=== PATIENT | male | born 1970 | race Caucasian/White ===

== ENCOUNTER 2018-02-14 12:13 | Emergency (ER) | payer OTHER ==
[~2018-02-14] VITALS: Ht 182.9 cm; Wt 92.7 kg
[2018-02-14] MEDS ORDERED: PERCT PO (12:23)
[2018-02-14] MEDS ORDERED: ATEN25TA PO (12:23)
[2018-02-14] MEDS ORDERED: IBUPROFEN 800 MG TABLET PO ONE (13:15)
[2018-02-14 14:07] VITALS: BP 129/86
== END 2018-02-14 14:16 | disposition home or self-care (01) ==
LOC: EMS 12:15
DX: L08.9 Local infection of the skin and subcutaneous tissue, unspecified (principal); I10 Essential (primary) hypertension; Z88.2 Allergy status to sulfonamides

== ENCOUNTER 2018-08-05 07:36 | Inpatient (IN) | payer MEDICAID, OTHER ==
[~2018-08-05] VITALS: Ht 182.9 cm; Wt 87.6 kg
[~2018-08-05 07:36] MED LIST: ATEN25TA PO; PERCT PO
[2018-08-05 10:08] LABS: AMPHET/METH SCREEN,URINE POSITIVE (NEGATIVE); BARBITURATE SCREEN, URINE NEGATIVE (NEGATIVE); BENZODIAZEPINES SCREEN,URINE NEGATIVE (NEGATIVE); CANNABINOID SCREEN,URINE POSITIVE (NEGATIVE); COCAINE SCREEN,URINE NEGATIVE (NEGATIVE); METHADONE SCREEN, URINE NEGATIVE (NEGATIVE); OPIATE SCREEN,URINE NEGATIVE (NEGATIVE)
[2018-08-05 10:09] LABS: PHENCYCLIDINE SCREEN,URINE NEGATIVE (NEGATIVE)
[2018-08-05 10:14] LABS: BASOPHILS % (AUTO) 0.6 % (0.0-2.0); EOSINOPHILS % (AUTO) 5.8 % (1.0-6.0); HEMATOCRIT 40.3 % (41-53); HEMOGLOBIN 13.4 g/dL (13.5-17.5); LYMPHOCYTES # (AUTO) 1.4 K/uL (1.0-4.8); LYMPHOCYTES % (AUTO) 22.7 % (22.0-44.0); MEAN CORPUSCULAR HEMOGLOBIN 28.1 pg (26.0-34.0); MEAN CORPUSCULAR HGB CONC 33.1 G/dL (31.0-37.0); MEAN CORPUSCULAR VOLUME 85 fL (80-100); MONOCYTES # (AUTO) 0.3 K/uL (0.1-1.0); MONOCYTES % (AUTO) 5.9 % (2.0-9.0); NEUTROPHILS # (AUTO) 3.9 K/uL (1.8-7.7); PLATELET COUNT (AUTO) 246 K/uL (150-450); RED BLOOD CELL COUNT(AUTO) 4.76 MIL/uL (4.50-5.90); RED CELL DISTRIBUTION WIDTH 13.2 % (11.5-14.5)
[2018-08-05 10:24] LABS: ANION GAP 7 mmol/L (8-16); CALCIUM, TOTAL 8.9 mg/dL (8.8-10.5); CARBON DIOXIDE 28 mmol/L (22-29); CHLORIDE 104 mmol/L (98-107); CREATININE 1.34 mg/dL (0.60-1.30); GLOMERULAR FILTR. RATE CALC 57 mL/min (>60); GLUCOSE,RANDOM 91 mg/dL (70-110); POTASSIUM 4.4 mmol/L (3.5-5.1); SODIUM SERUM 139 mmol/L (136-145); UREA NITROGEN, BLOOD 15 mg/dL (7-18)
[2018-08-05 10:29] LABS: ALANINE AMINOTRANSFERASE 32 U/L (12-78); ALBUMIN 3.6 g/dL (3.4-5.0); ALKALINE PHOSPHATASE 53 U/L (46-116); ASPARTATE AMINOTRANSFERASE 23 U/L (15-37); BILIRUBIN,TOTAL 0.3 mg/dL (0.1-1.0); TOTAL PROTEIN, SERUM 6.7 g/dL (6.4-8.2)
[2018-08-05] MEDS ORDERED: ACETAMINOPHEN 325 MG TABLET PO PRN (15:00)
[2018-08-05] MEDS ORDERED: QUEtiapine FUMARATE 100 MG TABLET PO PRN (15:00)
[2018-08-05] MEDS ORDERED: MAG HYDROX/AL HYDROX/SIMETH ES 30 ML SUSPENSION UDCUP PO PRN (15:00)
[2018-08-05] MEDS ORDERED: GuaiFENesin/D-METHORPHAN [SUGAR-FREE] 200-20MG/10 ML SYRUP UDCUP PO PRN (15:00)
[2018-08-05] MEDS ORDERED: TUBERCULIN, PURIFIED PROTEIN DERIVATIVE 5 TU/0.1 ML SYRINGE ID ONE (15:00)
[2018-08-05] MEDS ORDERED: LOPERAMIDE HCL 2 MG CAPSULE PO PRN (15:00)
[2018-08-05] MEDS ORDERED: HydrOXYzine PAMOATE 50 MG CAPSULE PO PRN (15:00)
[2018-08-05] MEDS ORDERED: LORazepam 2 MG TABLET PO PRN (15:00)
[2018-08-05] MEDS ORDERED: MAGNESIUM HYDROXIDE SUSPENSION 30 ML UDCUP PO PRN (15:00)
[2018-08-05] MEDS ORDERED: PROMETHAZINE HCL 25 MG TABLET PO PRN (15:00)
[2018-08-05 16:26] VITALS: BP 101/75
[2018-08-05] MEDS: THIAMINE HCL 100 MG TABLET PO SCH (17:20)
[2018-08-05] MEDS ORDERED: MIRTAZAPINE 15 MG TABLET PO SCH (21:00)
[2018-08-06 01:09] VITALS: BP 130/80
[2018-08-06 08:37] LABS: CHOL/HDL RATIO 5.1 (4.2-7.3); FREE T4 (FREE THYROXINE) 0.84 ng/dL (0.76-1.46); THYROID STIMULATING HORMONE 1.46 uIU/mL (0.36-3.74)
[2018-08-06] MEDS: FOLIC ACID 1 MG TABLET PO SCH (08:53)
[2018-08-06] MEDS: THIAMINE HCL 100 MG TABLET PO SCH ×2 (08:53→16:52)
[2018-08-06] MEDS: MULTIVITAMINS WITH MINERALS, THERAPEUTIC TABLET PO SCH (08:53)
[2018-08-06] MEDS ORDERED: NALTREXONE HCL 50 MG TABLET PO SCH (09:00)
[2018-08-06 09:22] VITALS: BP 147/87
[2018-08-06 16:33] VITALS: BP 101/90
[2018-08-06] MEDS: GABAPENTIN 400 MG CAPSULE PO SCH (20:48)
[2018-08-06] MEDS: ZOLPIDEM TARTRATE 10 MG TABLET PO PRN (21:30)
[2018-08-06] MEDS ORDERED: CloNIDine HCL 0.1 MG TABLET PO PRN (23:00)
[2018-08-07 08:26] VITALS: BP 130/95
[2018-08-07] MEDS ORDERED: DULoxetine HCL 20 MG CAPSULE PO SCH (09:00)
[2018-08-07] MEDS ORDERED: HYDROCODONE/ACETAMINOPHEN 5-325 MG TABLET PO PRN (09:15)
[2018-08-07] MEDS: GABAPENTIN 400 MG CAPSULE PO SCH ×3 (09:38→17:47)
[2018-08-07] MEDS: MULTIVITAMINS WITH MINERALS, THERAPEUTIC TABLET PO SCH (09:38)
[2018-08-07] MEDS: FOLIC ACID 1 MG TABLET PO SCH (09:38)
[2018-08-07] MEDS: THIAMINE HCL 100 MG TABLET PO SCH ×2 (09:38→17:47)
[2018-08-07] MEDS: ACAMPROSATE CALCIUM 333 MG DR TABLET PO SCH ×3 (09:38→17:47)
[2018-08-07] MEDS ORDERED: ACAM333T7 PO (13:30)
[2018-08-07] MEDS ORDERED: DULO20CA30 PO (13:30)
[2018-08-07] MEDS ORDERED: GABA-533 PO (13:30)
[2018-08-07 16:33] VITALS: BP 124/84
[2018-08-07] MEDS: ZOLPIDEM TARTRATE 10 MG TABLET PO PRN (20:51)
[2018-08-08] MEDS ORDERED: DULO30CA2 PO (08:01)
[2018-08-08] MEDS ORDERED: GABA-531 PO (08:01)
[2018-08-08] MEDS ORDERED: ACAM333T7 PO (08:01)
[2018-08-08 08:14] VITALS: BP 151/96
[2018-08-08] MEDS ORDERED: DULoxetine HCL 20 MG CAPSULE PO SCH (09:00)
[2018-08-08] MEDS: GABAPENTIN 400 MG CAPSULE PO SCH ×2 (09:24→12:47)
[2018-08-08] MEDS: FOLIC ACID 1 MG TABLET PO SCH (09:24)
[2018-08-08] MEDS: THIAMINE HCL 100 MG TABLET PO SCH (09:24)
[2018-08-08] MEDS: ACAMPROSATE CALCIUM 333 MG DR TABLET PO SCH ×2 (09:24→12:47)
[2018-08-08] MEDS: MULTIVITAMINS WITH MINERALS, THERAPEUTIC TABLET PO SCH (09:24)
[2018-08-08 12:35] VITALS: BP 123/96
[2018-08-08 16:21] VITALS: BP 138/91
== END 2018-08-08 15:45 | disposition home or self-care (01) | DRG 751 ==
LOC: EMS 07:36 → B2S 14:26
PROVIDERS: ADMIT Psychiatry & Neurology Psychiatry; ATTEND Psychiatry & Neurology Psychiatry
DX: F33.2 Major depressive disorder, recurrent severe without psychotic features (principal); C78.00 Secondary malignant neoplasm of unspecified lung; R45.851 Suicidal ideations; F11.20 Opioid dependence, uncomplicated; C62.90 Malignant neoplasm of unspecified testis, unspecified whether descended or undescended; D64.9 Anemia, unspecified; F12.90 Cannabis use, unspecified, uncomplicated; F15.90 Other stimulant use, unspecified, uncomplicated; I12.9 Hypertensive chronic kidney disease with stage 1 through stage 4 chronic kidney disease, or unspecified chronic kidney disease; Z96.641 Presence of right artificial hip joint; N18.1 Chronic kidney disease, stage 1; Z80.0 Family history of malignant neoplasm of digestive organs; Z91.19 Patient's noncompliance with other medical treatment and regimen; Z79.52 Long term (current) use of systemic steroids; Z81.8 Family history of other mental and behavioral disorders; Z82.49 Family history of ischemic heart disease and other diseases of the circulatory system; Z85.47 Personal history of malignant neoplasm of testis; Z88.2 Allergy status to sulfonamides
CPT/HCPCS: 84439; 84443; G0480

== ENCOUNTER 2018-09-06 17:09 | Inpatient (IN) | payer MEDICAID, OTHER ==
[~2018-09-06] VITALS: Ht 182.9 cm; Wt 88.0 kg
[~2018-09-06 17:09] MED LIST changes: +ACAM333T7 PO; -ATEN25TA PO; +DULO20CA30 PO; +DULO30CA2 PO; +GABA-531 PO; +GABA-533 PO; -PERCT PO
[2018-09-06] MEDS ORDERED: PERCT10 PO (17:48)
[2018-09-06] MEDS ORDERED: PERTUSS(ACELL),DIPH,TET VAC/PF 0.5 ML VIAL IM ONE (18:15)
[2018-09-06 18:26] LABS: BASOPHILS % (AUTO) 0.8 % (0.0-2.0); HEMATOCRIT 37.5 % (41-53); HEMOGLOBIN 12.5 g/dL (13.5-17.5); LYMPHOCYTES # (AUTO) 1.5 K/uL (1.0-4.8); LYMPHOCYTES % (AUTO) 19.5 % (22.0-44.0); MEAN CORPUSCULAR HEMOGLOBIN 27.9 pg (26.0-34.0); MEAN CORPUSCULAR HGB CONC 33.3 G/dL (31.0-37.0); MEAN CORPUSCULAR VOLUME 84 fL (80-100); MONOCYTES # (AUTO) 0.4 K/uL (0.1-1.0); MONOCYTES % (AUTO) 5.6 % (2.0-9.0); NEUTROPHILS # (AUTO) 5.3 K/uL (1.8-7.7); NEUTROPHILS % (AUTO) 68.1 % (40.0-70.0); PLATELET COUNT (AUTO) 235 K/uL (150-450); RED BLOOD CELL COUNT(AUTO) 4.46 MIL/uL (4.50-5.90); RED CELL DISTRIBUTION WIDTH 13.5 % (11.5-14.5)
[2018-09-06 18:36] LABS: ANION GAP 8 mmol/L (8-16); CALCIUM, TOTAL 8.5 mg/dL (8.8-10.5); CARBON DIOXIDE 28 mmol/L (22-29); CHLORIDE 106 mmol/L (98-107); CREATININE 0.94 mg/dL (0.60-1.30); GLOMERULAR FILTR. RATE CALC > 60 mL/min (>60); GLUCOSE,RANDOM 99 mg/dL (70-110); POTASSIUM 4.2 mmol/L (3.5-5.1); SODIUM SERUM 142 mmol/L (136-145); UREA NITROGEN, BLOOD 15 mg/dL (7-18)
[2018-09-06 18:42] LABS: ALANINE AMINOTRANSFERASE 30 U/L (12-78); ALBUMIN 3.6 g/dL (3.4-5.0); ALKALINE PHOSPHATASE 57 U/L (46-116); ASPARTATE AMINOTRANSFERASE 20 U/L (15-37); BILIRUBIN,TOTAL 0.2 mg/dL (0.1-1.0); TOTAL PROTEIN, SERUM 6.9 g/dL (6.4-8.2)
[2018-09-06 19:01] LABS: AMPHET/METH SCREEN,URINE POSITIVE (NEGATIVE); BARBITURATE SCREEN, URINE NEGATIVE (NEGATIVE); BENZODIAZEPINES SCREEN,URINE NEGATIVE (NEGATIVE); CANNABINOID SCREEN,URINE POSITIVE (NEGATIVE); COCAINE SCREEN,URINE NEGATIVE (NEGATIVE); METHADONE SCREEN, URINE NEGATIVE (NEGATIVE); OPIATE SCREEN,URINE NEGATIVE (NEGATIVE); PHENCYCLIDINE SCREEN,URINE NEGATIVE (NEGATIVE)
[2018-09-06] MEDS ORDERED: QUEtiapine FUMARATE 100 MG TABLET PO PRN (20:45)
[2018-09-06] MEDS ORDERED: ZOLPIDEM TARTRATE 10 MG TABLET PO PRN (20:45)
[2018-09-06] MEDS ORDERED: LORazepam 2 MG TABLET PO PRN (20:45)
[2018-09-07] MEDS: LORazepam 2 MG TABLET PO PRN (03:04)
[2018-09-07] MEDS: QUEtiapine FUMARATE 100 MG TABLET PO PRN (03:04)
[2018-09-07] MEDS: GABAPENTIN 300 MG CAPSULE PO SCH ×2 (16:03→21:00)
[2018-09-08] MEDS: GABAPENTIN 300 MG CAPSULE PO SCH ×2 (09:00→17:00)
[2018-09-08] MEDS: DULoxetine HCL 60 MG CAPSULE PO SCH (09:00)
[2018-09-08] MEDS: BuPROPion HCL XL 150 MG ER TABLET PO SCH (09:00)
[2018-09-08] MEDS: LORazepam 2 MG TABLET PO PRN ×2 (12:27→18:07)
[2018-09-08 17:04] VITALS: BP 135/96
[2018-09-08] MEDS ORDERED: PNEUMOCOCCAL VACCINE POLYVALENT 0.5 ML VIAL [PPSV23] IM ONE (20:45)
[2018-09-08] MEDS ORDERED: IBUPROFEN 600 MG TABLET PO PRN (21:00)
[2018-09-08] MEDS ORDERED: ACETAMINOPHEN 325 MG TABLET PO PRN (21:00)
[2018-09-09 07:13] VITALS: BP 122/89
[2018-09-09] MEDS: GABAPENTIN 300 MG CAPSULE PO SCH ×2 (08:17→12:02)
[2018-09-09] MEDS: DULoxetine HCL 60 MG CAPSULE PO SCH (08:17)
[2018-09-09] MEDS: BuPROPion HCL XL 150 MG ER TABLET PO SCH (08:18)
[2018-09-09] MEDS: BACITRACIN 28.4 GM OINTMENT TP SCH (08:18)
[2018-09-09 08:36] VITALS: BP 120/75
[2018-09-09] MEDS ORDERED: PROMETHAZINE HCL 25 MG TABLET PO PRN (13:00)
[2018-09-09] MEDS ORDERED: GuaiFENesin/D-METHORPHAN [SUGAR-FREE] 200-20MG/10 ML SYRUP UDCUP PO PRN (13:00)
[2018-09-09] MEDS ORDERED: ACETAMINOPHEN 325 MG TABLET PO PRN (13:00)
[2018-09-09] MEDS ORDERED: MAG HYDROX/AL HYDROX/SIMETH ES 30 ML SUSPENSION UDCUP PO PRN (13:00)
[2018-09-09] MEDS ORDERED: LOPERAMIDE HCL 2 MG CAPSULE PO PRN (13:00)
[2018-09-09] MEDS ORDERED: MAGNESIUM HYDROXIDE SUSPENSION 30 ML UDCUP PO PRN (13:00)
[2018-09-09] MEDS ORDERED: HydrOXYzine PAMOATE 50 MG CAPSULE PO PRN (13:00)
[2018-09-09] MEDS: ACAMPROSATE CALCIUM 333 MG DR TABLET PO SCH ×2 (13:00→17:00)
[2018-09-09 13:35] VITALS: BP 118/62
[2018-09-09] MEDS: HYDROCODONE/ACETAMINOPHEN 5-325 MG TABLET PO PRN ×2 (13:38→23:27)
[2018-09-09 14:38] VITALS: BP 118/64
[2018-09-09 16:00] VITALS: BP 131/87
[2018-09-09] MEDS: PREGABALIN 25 MG CAPSULE PO SCH (17:00)
[2018-09-09] MEDS: LORazepam 2 MG TABLET PO PRN (17:20)
[2018-09-09] MEDS: THIAMINE HCL 100 MG TABLET PO SCH (17:20)
[2018-09-09] MEDS ORDERED: ACAM333T7 PO (17:22)
[2018-09-09] MEDS ORDERED: MIRTAZAPINE 15 MG TABLET PO SCH (21:00)
[2018-09-10] VITALS (7 sets, daily range): BP systolic 118–145; BP diastolic 62–80
[2018-09-10] MEDS: HYDROCODONE/ACETAMINOPHEN 5-325 MG TABLET PO PRN ×3 (07:40→20:32)
[2018-09-10] MEDS: THIAMINE HCL 100 MG TABLET PO SCH ×2 (08:24→16:07)
[2018-09-10] MEDS: FOLIC ACID 1 MG TABLET PO SCH (08:24)
[2018-09-10] MEDS: ACAMPROSATE CALCIUM 333 MG DR TABLET PO SCH ×3 (08:24→16:07)
[2018-09-10] MEDS: MULTIVITAMINS WITH MINERALS, THERAPEUTIC TABLET PO SCH (08:24)
[2018-09-10] MEDS: PREGABALIN 25 MG CAPSULE PO SCH ×2 (08:30→13:16)
[2018-09-10] MEDS: BACITRACIN 28.4 GM OINTMENT TP SCH (08:30)
[2018-09-10] MEDS: LORazepam 0.5 MG TABLET PO PRN ×2 (13:17→20:32)
[2018-09-10] MEDS: PREGABALIN 50 MG CAPSULE PO SCH (16:07)
[2018-09-10] MEDS: MIRTAZAPINE 30 MG TABLET PO SCH (20:32)
[2018-09-10] MEDS: ZOLPIDEM TARTRATE 10 MG TABLET PO PRN (20:32)
[2018-09-11 01:07] VITALS: BP 107/59
[2018-09-11 07:30] VITALS: BP 112/62
[2018-09-11] MEDS: HYDROCODONE/ACETAMINOPHEN 5-325 MG TABLET PO PRN ×3 (07:32→20:58)
[2018-09-11] MEDS: PREGABALIN 50 MG CAPSULE PO SCH ×3 (08:02→16:37)
[2018-09-11] MEDS: THIAMINE HCL 100 MG TABLET PO SCH ×2 (08:02→16:37)
[2018-09-11] MEDS: FOLIC ACID 1 MG TABLET PO SCH (08:02)
[2018-09-11] MEDS: ACAMPROSATE CALCIUM 333 MG DR TABLET PO SCH ×3 (08:02→16:37)
[2018-09-11] MEDS: LORazepam 0.5 MG TABLET PO PRN ×3 (08:02→20:58)
[2018-09-11] MEDS: BACITRACIN 28.4 GM OINTMENT TP SCH (08:03)
[2018-09-11] MEDS: MULTIVITAMINS WITH MINERALS, THERAPEUTIC TABLET PO SCH (08:03)
[2018-09-11 08:17] VITALS: BP 115/76
[2018-09-11 13:30] VITALS: BP 118/64
[2018-09-11 14:33] VITALS: BP 116/62
[2018-09-11 16:06] VITALS: BP 139/71
[2018-09-11] MEDS ORDERED: PREGABALIN 75 MG CAPSULE PO SCH (17:00)
[2018-09-11] MEDS: MIRTAZAPINE 30 MG TABLET PO SCH (20:57)
[2018-09-11] MEDS: ZOLPIDEM TARTRATE 10 MG TABLET PO PRN (20:58)
[2018-09-12 08:14] VITALS: BP 120/74
[2018-09-12] MEDS: FOLIC ACID 1 MG TABLET PO SCH (08:22)
[2018-09-12] MEDS: ACAMPROSATE CALCIUM 333 MG DR TABLET PO SCH ×3 (08:22→16:13)
[2018-09-12] MEDS: MULTIVITAMINS WITH MINERALS, THERAPEUTIC TABLET PO SCH (08:22)
[2018-09-12] MEDS: THIAMINE HCL 100 MG TABLET PO SCH ×2 (08:22→16:13)
[2018-09-12] MEDS ORDERED: BACITRACIN 28.4 GM OINTMENT TP PRN (10:30)
[2018-09-12 10:32] VITALS: BP 138/94
[2018-09-12] MEDS: HYDROCODONE/ACETAMINOPHEN 5-325 MG TABLET PO PRN ×2 (10:32→20:08)
[2018-09-12 16:09] VITALS: BP 118/79
[2018-09-12] MEDS: PREGABALIN 75 MG CAPSULE PO SCH (16:13)
[2018-09-12] MEDS: AMOX TR/POT CLAV 875 MG/125 MG TABLET PO SCH (16:13)
[2018-09-12] MEDS: MIRTAZAPINE 30 MG TABLET PO SCH (20:08)
[2018-09-12] MEDS: LORazepam 0.5 MG TABLET PO PRN (20:09)
[2018-09-12] MEDS: ZOLPIDEM TARTRATE 10 MG TABLET PO PRN (20:09)
[2018-09-13 04:59] VITALS: BP 138/77
[2018-09-13 08:02] VITALS: BP 131/57
[2018-09-13] MEDS: PREGABALIN 75 MG CAPSULE PO SCH ×2 (08:43→12:33)
[2018-09-13] MEDS: AMOX TR/POT CLAV 875 MG/125 MG TABLET PO SCH ×2 (08:43→16:36)
[2018-09-13] MEDS: FOLIC ACID 1 MG TABLET PO SCH (08:43)
[2018-09-13] MEDS: ACAMPROSATE CALCIUM 333 MG DR TABLET PO SCH ×3 (08:43→16:36)
[2018-09-13] MEDS: MULTIVITAMINS WITH MINERALS, THERAPEUTIC TABLET PO SCH (08:43)
[2018-09-13] MEDS: THIAMINE HCL 100 MG TABLET PO SCH ×2 (08:45→16:36)
[2018-09-13 16:03] VITALS: BP 120/74
[2018-09-13] MEDS: PREGABALIN 50 MG CAPSULE PO SCH (16:36)
[2018-09-13] MEDS: LORazepam 0.5 MG TABLET PO PRN (16:36)
[2018-09-13] MEDS ORDERED: LORazepam 2 MG/ML VIAL ONE (20:11)
[2018-09-13] MEDS ORDERED: DiphenhydrAMINE HCL 50 MG/ML VIAL ONE (20:12)
[2018-09-13] MEDS ORDERED: DiphenhydrAMINE HCL 50 MG/ML VIAL IM ONE (20:30)
[2018-09-13] MEDS ORDERED: LORazepam 2 MG/ML VIAL IM ONE (20:30)
[2018-09-13] MEDS: MIRTAZAPINE 30 MG TABLET PO SCH (20:32)
[2018-09-14] MEDS: ACAMPROSATE CALCIUM 333 MG DR TABLET PO SCH ×3 (09:00→16:30)
[2018-09-14] MEDS: FOLIC ACID 1 MG TABLET PO SCH (09:00)
[2018-09-14] MEDS: AMOX TR/POT CLAV 875 MG/125 MG TABLET PO SCH ×2 (09:00→16:30)
[2018-09-14] MEDS: THIAMINE HCL 100 MG TABLET PO SCH ×2 (09:00→16:30)
[2018-09-14] MEDS: PREGABALIN 50 MG CAPSULE PO SCH ×3 (09:00→16:30)
[2018-09-14] MEDS: MULTIVITAMINS WITH IRON TABLET PO SCH (09:00)
[2018-09-14] MEDS: HYDROCODONE/ACETAMINOPHEN 5-325 MG TABLET PO PRN (20:18)
[2018-09-14] MEDS: MIRTAZAPINE 30 MG TABLET PO SCH (20:18)
[2018-09-14] MEDS: LORazepam 0.5 MG TABLET PO PRN (20:18)
[2018-09-14] MEDS: ZOLPIDEM TARTRATE 10 MG TABLET PO PRN (20:18)
[2018-09-15 05:26] VITALS: BP 112/70
[2018-09-15 08:00] VITALS: BP 113/68
[2018-09-15] MEDS: ACAMPROSATE CALCIUM 333 MG DR TABLET PO SCH ×3 (08:32→16:49)
[2018-09-15] MEDS: FOLIC ACID 1 MG TABLET PO SCH (08:32)
[2018-09-15] MEDS: AMOX TR/POT CLAV 875 MG/125 MG TABLET PO SCH ×2 (08:32→16:49)
[2018-09-15] MEDS: PREGABALIN 50 MG CAPSULE PO SCH ×3 (08:32→16:49)
[2018-09-15] MEDS: MULTIVITAMINS WITH IRON TABLET PO SCH (08:32)
[2018-09-15] MEDS: THIAMINE HCL 100 MG TABLET PO SCH ×2 (08:32→16:49)
[2018-09-15 12:25] VITALS: BP 120/68
[2018-09-15] MEDS: HYDROCODONE/ACETAMINOPHEN 5-325 MG TABLET PO PRN ×2 (12:28→20:50)
[2018-09-15 13:28] VITALS: BP 116/62
[2018-09-15] MEDS: LORazepam 0.5 MG TABLET PO PRN ×2 (16:49→20:49)
[2018-09-15 17:25] VITALS: BP 142/93
[2018-09-15] MEDS: ZOLPIDEM TARTRATE 10 MG TABLET PO PRN (20:49)
[2018-09-15] MEDS: MIRTAZAPINE 30 MG TABLET PO SCH (20:49)
[2018-09-16] VITALS (8 sets, daily range): BP systolic 118–128; BP diastolic 78–99
[2018-09-16] MEDS: HYDROCODONE/ACETAMINOPHEN 5-325 MG TABLET PO PRN ×4 (08:18→20:20)
[2018-09-16] MEDS: LORazepam 0.5 MG TABLET PO PRN ×3 (08:18→18:08)
[2018-09-16] MEDS: ACAMPROSATE CALCIUM 333 MG DR TABLET PO SCH ×3 (08:18→16:44)
[2018-09-16] MEDS: AMOX TR/POT CLAV 875 MG/125 MG TABLET PO SCH ×2 (08:19→16:45)
[2018-09-16] MEDS: FOLIC ACID 1 MG TABLET PO SCH (08:19)
[2018-09-16] MEDS: PREGABALIN 50 MG CAPSULE PO SCH ×3 (08:19→16:44)
[2018-09-16] MEDS: MULTIVITAMINS WITH IRON TABLET PO SCH (08:19)
[2018-09-16] MEDS: THIAMINE HCL 100 MG TABLET PO SCH ×2 (08:19→16:44)
[2018-09-16] MEDS ORDERED: MIRT30 PO (12:34)
[2018-09-16] MEDS ORDERED: PREG50 PO ×2 (12:34→14:48)
[2018-09-16] MEDS ORDERED: MIRT15 PO (14:48)
[2018-09-16] MEDS ORDERED: ACAM333T7 PO (14:48)
[2018-09-16] MEDS: QUEtiapine FUMARATE 100 MG TABLET PO PRN (18:08)
[2018-09-16] MEDS: ZOLPIDEM TARTRATE 10 MG TABLET PO PRN (20:08)
[2018-09-16] MEDS: MIRTAZAPINE 30 MG TABLET PO SCH (20:08)
[2018-09-17 01:40] VITALS: BP 147/67
[2018-09-17] MEDS: HYDROCODONE/ACETAMINOPHEN 5-325 MG TABLET PO PRN ×4 (01:57→14:28)
[2018-09-17 08:09] VITALS: BP 118/87
[2018-09-17] MEDS: ACAMPROSATE CALCIUM 333 MG DR TABLET PO SCH ×2 (08:11→12:05)
[2018-09-17] MEDS: MULTIVITAMINS WITH IRON TABLET PO SCH (08:11)
[2018-09-17] MEDS: AMOX TR/POT CLAV 875 MG/125 MG TABLET PO SCH (08:12)
[2018-09-17] MEDS: LORazepam 0.5 MG TABLET PO PRN (08:12)
[2018-09-17] MEDS: THIAMINE HCL 100 MG TABLET PO SCH (08:12)
[2018-09-17] MEDS: FOLIC ACID 1 MG TABLET PO SCH (08:12)
[2018-09-17] MEDS: PREGABALIN 50 MG CAPSULE PO SCH ×2 (08:12→12:05)
[2018-09-17 09:12] VITALS: BP 122/68
[2018-09-17 14:28] VITALS: BP 116/68
== END 2018-09-17 14:36 | disposition home or self-care (01) | DRG 751 ==
LOC: EMS 17:09 → B3A 09-08 15:54
PROVIDERS: ADMIT Psychiatry & Neurology Psychiatry; ATTEND Psychiatry & Neurology Psychiatry
DX: F33.2 Major depressive disorder, recurrent severe without psychotic features (principal); C78.00 Secondary malignant neoplasm of unspecified lung; R45.851 Suicidal ideations; F15.20 Other stimulant dependence, uncomplicated; C62.90 Malignant neoplasm of unspecified testis, unspecified whether descended or undescended; D64.9 Anemia, unspecified; S11.91XA Laceration without foreign body of unspecified part of neck, initial encounter; S81.811A Laceration without foreign body, right lower leg, initial encounter; F12.90 Cannabis use, unspecified, uncomplicated; F17.200 Nicotine dependence, unspecified, uncomplicated; G47.00 Insomnia, unspecified; I10 Essential (primary) hypertension; Z96.641 Presence of right artificial hip joint; S51.812A Laceration without foreign body of left forearm, initial encounter; F41.9 Anxiety disorder, unspecified; S51.811A Laceration without foreign body of right forearm, initial encounter; S81.812A Laceration without foreign body, left lower leg, initial encounter; X83.8XXA Intentional self-harm by other specified means, initial encounter; Y92.89 Other specified places as the place of occurrence of the external cause; Y93.89 Activity, other specified; Y99.8 Other external cause status; Z79.52 Long term (current) use of systemic steroids; Z79.899 Other long term (current) drug therapy; Z85.47 Personal history of malignant neoplasm of testis; Z91.19 Patient's noncompliance with other medical treatment and regimen; Z91.5 Personal history of self-harm; Z92.21 Personal history of antineoplastic chemotherapy; Z88.2 Allergy status to sulfonamides; Z88.8 Allergy status to other drugs, medicaments and biological substances
CPT/HCPCS: 87081; 90471; 90715; 90732; G0480; J1200; J2060; J3230

== ENCOUNTER 2020-01-16 04:41 | Emergency (ER) | payer MEDICAID, OTHER ==
[~2020-01-16] VITALS: Ht 182.9 cm; Wt 89.0 kg
[~2020-01-16 04:41] MED LIST changes: -DULO20CA30 PO; -DULO30CA2 PO; -GABA-531 PO; -GABA-533 PO; +MIRT-89 PO; +MIRT30 PO; +PREG50 PO
[2020-01-16 05:20] LABS: BASOPHILS % (AUTO) 0.5 % (0.0-2.0); EOSINOPHILS % (AUTO) 2.4 % (1.0-6.0); HEMATOCRIT 41.2 % (41-53); LYMPHOCYTES # (AUTO) 1.5 K/uL (1.0-4.8); LYMPHOCYTES % (AUTO) 18.7 % (22.0-44.0); MEAN CORPUSCULAR VOLUME 85 fL (80-100); MONOCYTES # (AUTO) 0.7 K/uL (0.1-1.0); NEUTROPHILS # (AUTO) 5.7 K/uL (1.8-7.7); NEUTROPHILS % (AUTO) 69.4 % (40.0-70.0); PLATELET COUNT (AUTO) 256 K/uL (150-450); RED BLOOD CELL COUNT(AUTO) 4.83 MIL/uL (4.50-5.90); RED CELL DISTRIBUTION WIDTH 13.6 % (11.5-14.5)
[2020-01-16 05:22] LABS: ANION GAP 8 mmol/L (8-16); CALCIUM, TOTAL 9.2 mg/dL (8.8-10.5); CARBON DIOXIDE 27 mmol/L (22-29); CHLORIDE 103 mmol/L (98-107); CREATININE 1.24 mg/dL (0.60-1.30); GLOMERULAR FILTR. RATE CALC > 60 mL/min (>60); GLUCOSE,RANDOM 110 mg/dL (70-110); POTASSIUM 3.2 mmol/L (3.5-5.1); SODIUM SERUM 138 mmol/L (136-145); UREA NITROGEN, BLOOD 22 mg/dL (7-18)
[2020-01-16 05:28] LABS: ALANINE AMINOTRANSFERASE 45 U/L (12-78); ALKALINE PHOSPHATASE 66 U/L (46-116); ASPARTATE AMINOTRANSFERASE 26 U/L (15-37); BILIRUBIN,TOTAL 0.4 mg/dL (0.1-1.0); TOTAL PROTEIN, SERUM 7.2 g/dL (6.4-8.2)
[2020-01-16] MEDS ORDERED: PERTUSS(ACELL),DIPH,TET VAC/PF 0.5 ML VIAL IM ONE (05:45)
[2020-01-16] MEDS ORDERED: POTASSIUM CHLORIDE 20 MEQ ER TABLET PO ONE (06:00)
[2020-01-16] MEDS ORDERED: LORazepam 1 MG TABLET PO ONE (10:15)
[2020-01-16 10:49] LABS: AMPHET/METH SCREEN,URINE POSITIVE (NEGATIVE); BARBITURATE SCREEN, URINE NEGATIVE (NEGATIVE); BENZODIAZEPINES SCREEN,URINE NEGATIVE (NEGATIVE); CANNABINOID SCREEN,URINE POSITIVE (NEGATIVE); COCAINE SCREEN,URINE NEGATIVE (NEGATIVE); METHADONE SCREEN, URINE NEGATIVE (NEGATIVE); OPIATE SCREEN,URINE NEGATIVE (NEGATIVE)
[2020-01-16 10:52] LABS: PHENCYCLIDINE SCREEN,URINE NEGATIVE (NEGATIVE)
[2020-01-16 11:32] VITALS: BP 135/78
== END 2020-01-16 12:03 | disposition home or self-care (01) ==
LOC: EMS 04:41
DX: S80.01XA Contusion of right knee, initial encounter (principal); S80.02XA Contusion of left knee, initial encounter; F32.9 Major depressive disorder, single episode, unspecified; I10 Essential (primary) hypertension; F17.210 Nicotine dependence, cigarettes, uncomplicated; F12.90 Cannabis use, unspecified, uncomplicated; F19.90 Other psychoactive substance use, unspecified, uncomplicated; Z88.1 Allergy status to other antibiotic agents; V00.131A Fall from skateboard, initial encounter; Y93.51 Activity, roller skating (inline) and skateboarding; Y92.89 Other specified places as the place of occurrence of the external cause; Y99.8 Other external cause status
CPT/HCPCS: 36415; 70450; 80053; 80307; 85025; 90471; 90715; 99284; G0480

== ENCOUNTER 2020-03-07 22:47 | Emergency (ER) | payer OTHER ==
[~2020-03-07] VITALS: Ht 182.9 cm; Wt 87.3 kg
[2020-03-08] MEDS ORDERED: LIDOCAINE 5% TRANSDERMAL PATCH TD ONE (00:15)
[2020-03-08] MEDS ORDERED: IBUPROFEN 400 MG TABLET PO ONE (00:15)
[2020-03-08] MEDS ORDERED: OxyCODONE HCL/ACETAMINOPHEN 5-325 MG TABLET PO ONE (00:15)
[2020-03-08 01:38] VITALS: BP 120/90
== END 2020-03-08 02:00 | disposition home or self-care (01) ==
LOC: EMS 22:48
DX: M54.5 Low back pain (principal); F32.9 Major depressive disorder, single episode, unspecified; I10 Essential (primary) hypertension; F17.210 Nicotine dependence, cigarettes, uncomplicated; F12.90 Cannabis use, unspecified, uncomplicated; F15.90 Other stimulant use, unspecified, uncomplicated; Z88.2 Allergy status to sulfonamides; Z79.899 Other long term (current) drug therapy
CPT/HCPCS: Z7502; Z7610

== ENCOUNTER 2020-03-26 17:10 | Emergency (ER) | payer OTHER ==
[~2020-03-26] VITALS: Ht 182.9 cm; Wt 86.4 kg
[2020-03-26 17:30] VITALS: BP 153/95
[2020-03-26] MEDS ORDERED: OXYC-601 PO (17:33)
[2020-03-26] MEDS ORDERED: OxyCODONE HCL/ACETAMINOPHEN 5-325 MG TABLET PO ONE (18:45)
[2020-03-26] MEDS ORDERED: LIDOCAINE 5% TRANSDERMAL PATCH TD ONE (18:45)
== END 2020-03-26 19:10 | disposition home or self-care (01) ==
LOC: EMS 17:10
DX: M54.5 Low back pain (principal); F11.20 Opioid dependence, uncomplicated

== ENCOUNTER 2020-06-18 11:08 | Emergency (ER) | payer OTHER ==
[~2020-06-18] VITALS: Ht 177.8 cm; Wt 77.3 kg
[~2020-06-18 11:08] MED LIST changes: +OXYC-601 PO
[2020-06-18 11:12] VITALS: BP 152/85
[2020-06-18] MEDS ORDERED: [UNRECOGNIZED DRUG - REMARK] PO (11:24)
[2020-06-18] MEDS ORDERED: ALBU0.212 NEB (11:25)
[2020-06-18 11:50] LABS: COVID AG,FIA SOURCE NASOPHARYNGEAL
== END 2020-06-18 12:43 | disposition home or self-care (01) ==
LOC: EMS 11:08
DX: F32.9 Major depressive disorder, single episode, unspecified (principal); I10 Essential (primary) hypertension; F12.90 Cannabis use, unspecified, uncomplicated; F15.90 Other stimulant use, unspecified, uncomplicated; Z20.822 Contact with and (suspected) exposure to COVID-19
CPT/HCPCS: 87426; 99283

== ENCOUNTER 2020-06-20 07:21 | Inpatient (IN) | payer MEDICAID, OTHER ==
[~2020-06-20] VITALS: Ht 182.9 cm; Wt 87.5 kg
[~2020-06-20 07:21] MED LIST changes: +ALBU0.212 NEB; +[UNRECOGNIZED DRUG - REMARK] PO
[2020-06-20] MEDS ORDERED: PERTUSS(ACELL),DIPH,TET VAC/PF 0.5 ML SYRINGE IM ONE (07:45)
[2020-06-20] MEDS ORDERED: BACITRACIN 0.9 GM PACKET OINTMENT TP ONE (07:45)
[2020-06-20 08:04] LABS: BASOPHILS % (AUTO) 0.7 % (0.0-2.0); EOSINOPHILS % (AUTO) 1.1 % (1.0-6.0); HEMATOCRIT 42.5 % (41-53); HEMOGLOBIN 14.4 g/dL (13.5-17.5); LYMPHOCYTES # (AUTO) 1.2 K/uL (1.0-4.8); MEAN CORPUSCULAR HEMOGLOBIN 28.5 pg (26.0-34.0); MEAN CORPUSCULAR HGB CONC 33.8 G/dL (31.0-37.0); MEAN CORPUSCULAR VOLUME 84 fL (80-100); MONOCYTES # (AUTO) 0.6 K/uL (0.1-1.0); NEUTROPHILS # (AUTO) 7.3 K/uL (1.8-7.7); NEUTROPHILS % (AUTO) 78.2 % (40.0-70.0); PLATELET COUNT (AUTO) 277 K/uL (150-450); RED BLOOD CELL COUNT(AUTO) 5.04 MIL/uL (4.50-5.90); RED CELL DISTRIBUTION WIDTH 13.7 % (11.5-14.5)
[2020-06-20 08:12] LABS: ANION GAP 12 mmol/L (8-16); CALCIUM, TOTAL 8.8 mg/dL (8.8-10.5); CARBON DIOXIDE 24 mmol/L (22-29); CHLORIDE 102 mmol/L (98-107); CREATININE 1.05 mg/dL (0.60-1.30); GLOMERULAR FILTR. RATE CALC > 60 mL/min (>60); GLUCOSE,RANDOM 104 mg/dL (70-110); POTASSIUM 3.7 mmol/L (3.5-5.1); SODIUM SERUM 138 mmol/L (136-145); UREA NITROGEN, BLOOD 16 mg/dL (7-18)
[2020-06-20 08:18] LABS: ACETAMINOPHEN < 2 mcg/mL (10-30); ALANINE AMINOTRANSFERASE 40 U/L (12-78); ALBUMIN 4.3 g/dL (3.4-5.0); ALKALINE PHOSPHATASE 71 U/L (46-116); ASPARTATE AMINOTRANSFERASE 37 U/L (15-37); BILIRUBIN,TOTAL 0.4 mg/dL (0.1-1.0)
[2020-06-20 08:23] LABS: SALICYLATE < 2.8 mg/dL (2.8-20.0)
[2020-06-20 08:28] LABS: COVID AG,FIA SOURCE NASOPHARYNGEAL
[2020-06-20 09:47] LABS: AMPHET/METH SCREEN,URINE POSITIVE (NEGATIVE); BARBITURATE SCREEN, URINE NEGATIVE (NEGATIVE); BENZODIAZEPINES SCREEN,URINE NEGATIVE (NEGATIVE); CANNABINOID SCREEN,URINE POSITIVE (NEGATIVE); COCAINE SCREEN,URINE POSITIVE (NEGATIVE); METHADONE SCREEN, URINE NEGATIVE (NEGATIVE); OPIATE SCREEN,URINE NEGATIVE (NEGATIVE)
[2020-06-20 10:01] LABS: PHENCYCLIDINE SCREEN,URINE NEGATIVE (NEGATIVE)
[2020-06-20] MEDS ORDERED: LORazepam 2 MG TABLET PO PRN (10:15)
[2020-06-20] MEDS ORDERED: HALOPERIDOL 5 MG TABLET PO PRN (10:15)
[2020-06-20 17:45] VITALS: BP 147/92
[2020-06-20 19:34] VITALS: BP 147/79
[2020-06-20] MEDS ORDERED: GuaiFENesin/D-METHORPHAN [SUGAR-FREE] 200-20MG/10 ML SYRUP UDCUP PO PRN (19:45)
[2020-06-20] MEDS ORDERED: MAGNESIUM HYDROXIDE SUSPENSION 30 ML UDCUP PO PRN (19:45)
[2020-06-20] MEDS ORDERED: ACETAMINOPHEN 325 MG TABLET PO PRN (19:45)
[2020-06-20] MEDS ORDERED: PETROLATUM,WHITE 28 GM JELLY TP PRN (19:45)
[2020-06-20] MEDS ORDERED: IBUPROFEN 400 MG TABLET PO PRN (19:45)
[2020-06-20] MEDS ORDERED: DOCUSATE SODIUM 100 MG CAPSULE PO PRN (19:45)
[2020-06-20] MEDS ORDERED: ALBUTEROL SULFATE HFA 90 MCG/PUFF 8 GM INHALER IH PRN (19:45)
[2020-06-20] MEDS ORDERED: MAG HYDROX/AL HYDROX/SIMETH ES 30 ML SUSPENSION UDCUP PO PRN (19:45)
[2020-06-20] MEDS ORDERED: LOPERAMIDE HCL 2 MG CAPSULE PO PRN (19:45)
[2020-06-20] MEDS ORDERED: NICOTINE 14 MG/24 HOUR PATCH TD PRN (19:45)
[2020-06-20] MEDS ORDERED: CloNIDine HCL 0.1 MG TABLET PO PRN (19:45)
[2020-06-20] MEDS ORDERED: ONDANSETRON HCL 4 MG TABLET PO PRN (19:45)
[2020-06-20] MEDS: ZOLPIDEM TARTRATE 10 MG TABLET PO PRN (20:29)
[2020-06-20 22:01] VITALS: BP 134/75
[2020-06-21 06:06] VITALS: BP 141/85
[2020-06-21] MEDS ORDERED: CloNIDine HCL 0.1 MG TABLET PO PRN (07:00)
[2020-06-21] MEDS ORDERED: LOPERAMIDE HCL 2 MG CAPSULE PO PRN (07:00)
[2020-06-21] MEDS ORDERED: PETROLATUM,WHITE 28 GM JELLY TP PRN (07:00)
[2020-06-21] MEDS ORDERED: GuaiFENesin/D-METHORPHAN [SUGAR-FREE] 200-20MG/10 ML SYRUP UDCUP PO PRN (07:00)
[2020-06-21] MEDS ORDERED: MAG HYDROX/AL HYDROX/SIMETH ES 30 ML SUSPENSION UDCUP PO PRN (07:00)
[2020-06-21] MEDS ORDERED: IBUPROFEN 400 MG TABLET PO PRN (07:00)
[2020-06-21] MEDS ORDERED: ALBUTEROL SULFATE HFA 90 MCG/PUFF 8 GM INHALER IH PRN (07:00)
[2020-06-21] MEDS ORDERED: MAGNESIUM HYDROXIDE SUSPENSION 30 ML UDCUP PO PRN (07:00)
[2020-06-21] MEDS ORDERED: DOCUSATE SODIUM 100 MG CAPSULE PO PRN (07:00)
[2020-06-21] MEDS ORDERED: ACETAMINOPHEN 325 MG TABLET PO PRN (07:00)
[2020-06-21] MEDS ORDERED: ONDANSETRON HCL 4 MG TABLET PO PRN (07:00)
[2020-06-21] MEDS ORDERED: NICOTINE 14 MG/24 HOUR PATCH TD PRN (07:00)
[2020-06-21] MEDS ORDERED: PNEUMOCOCCAL VACCINE POLYVALENT 0.5 ML VIAL [PPSV23] IM ONE (07:45)
[2020-06-21] MEDS ORDERED: INFLUENZA VIRUS VACCINE QVS 2020-21 (6MO+)/PF 60 MCG/0.5 ML SYRINGE IM ONE (07:45)
[2020-06-21 08:30] LABS: CHOL/HDL RATIO 4.6 (4.2-7.3); FREE T4 (FREE THYROXINE) 0.77 ng/dL (0.76-1.46); THYROID STIMULATING HORMONE 0.96 uIU/mL (0.36-3.74)
[2020-06-21 08:50] VITALS: BP 123/88
[2020-06-21] MEDS ORDERED: SULFAMETHOX/TRIMETH DS 800-160 MG/TABLET PO SCH (09:00)
[2020-06-21] MEDS: ACAMPROSATE CALCIUM 333 MG DR TABLET PO SCH ×3 (10:36→16:41)
[2020-06-21] MEDS: CEPHALEXIN MONOHYDRATE 500 MG CAPSULE PO SCH ×3 (10:37→16:41)
[2020-06-21] MEDS: CLINDAMYCIN HCL 300 MG CAPSULE PO SCH ×3 (10:38→16:41)
[2020-06-21] MEDS: BACITRACIN 28 GM OINTMENT TP SCH ×2 (10:40→16:41)
[2020-06-21] MEDS: BuPROPion HCL XL 150 MG ER TABLET PO SCH (12:00)
[2020-06-21] MEDS: OLANZapine 5 MG TABLET PO SCH ×2 (12:00→16:40)
[2020-06-21 16:27] VITALS: BP 137/81
[2020-06-21] MEDS: ZOLPIDEM TARTRATE 10 MG TABLET PO PRN (22:01)
[2020-06-22 00:48] VITALS: BP 114/72
[2020-06-22 08:41] VITALS: BP 127/102
[2020-06-22] MEDS: ACAMPROSATE CALCIUM 333 MG DR TABLET PO SCH ×3 (09:51→16:47)
[2020-06-22] MEDS: BACITRACIN 28 GM OINTMENT TP SCH ×2 (09:52→19:36)
[2020-06-22] MEDS: OLANZapine 5 MG TABLET PO SCH ×2 (09:52→16:47)
[2020-06-22] MEDS: BuPROPion HCL XL 150 MG ER TABLET PO SCH (09:52)
[2020-06-22] MEDS: CLINDAMYCIN HCL 300 MG CAPSULE PO SCH ×3 (09:53→16:47)
[2020-06-22] MEDS: CEPHALEXIN MONOHYDRATE 500 MG CAPSULE PO SCH ×3 (09:53→17:06)
[2020-06-22 16:19] VITALS: BP 127/90
[2020-06-23 01:30] VITALS: BP 139/80
[2020-06-23 08:25] VITALS: BP 144/90
[2020-06-23] MEDS: BuPROPion HCL XL 150 MG ER TABLET PO SCH (09:08)
[2020-06-23] MEDS: ACAMPROSATE CALCIUM 333 MG DR TABLET PO SCH ×3 (09:08→17:06)
[2020-06-23] MEDS: CEPHALEXIN MONOHYDRATE 500 MG CAPSULE PO SCH ×3 (09:08→17:06)
[2020-06-23] MEDS: CLINDAMYCIN HCL 300 MG CAPSULE PO SCH ×3 (09:08→17:06)
[2020-06-23] MEDS: BACITRACIN 28 GM OINTMENT TP SCH ×2 (09:12→17:06)
[2020-06-23 16:17] VITALS: BP 127/74
[2020-06-23] MEDS ORDERED: OLANZapine 5 MG TABLET PO SCH (21:00)
[2020-06-23] MEDS: ZOLPIDEM TARTRATE 10 MG TABLET PO PRN (23:11)
[2020-06-24 00:15] VITALS: BP 128/76
[2020-06-24 08:19] VITALS: BP 135/78
[2020-06-24] MEDS: BuPROPion HCL XL 150 MG ER TABLET PO SCH (09:51)
[2020-06-24] MEDS: ACAMPROSATE CALCIUM 333 MG DR TABLET PO SCH ×2 (09:51→12:24)
[2020-06-24] MEDS: BACITRACIN 28 GM OINTMENT TP SCH (09:52)
[2020-06-24] MEDS: CEPHALEXIN MONOHYDRATE 500 MG CAPSULE PO SCH ×2 (09:52→12:24)
[2020-06-24] MEDS: CLINDAMYCIN HCL 300 MG CAPSULE PO SCH ×2 (09:52→12:24)
[2020-06-24] MEDS ORDERED: BUPR-93 PO (10:58)
[2020-06-24] MEDS ORDERED: CEPH500C3 PO (10:58)
[2020-06-24] MEDS ORDERED: OLAN5TAB2 PO (10:58)
[2020-06-24] MEDS ORDERED: CLIN300C3 PO (10:58)
== END 2020-06-24 12:45 | disposition home or self-care (01) | DRG 754 ==
LOC: EMS 07:27 → B2S 15:15
PROVIDERS: ADMIT Psychiatry & Neurology Psychiatry; ATTEND Psychiatry & Neurology Psychiatry
DX: F32.9 Major depressive disorder, single episode, unspecified (principal); R45.851 Suicidal ideations; I10 Essential (primary) hypertension; M54.30 Sciatica, unspecified side; Z20.822 Contact with and (suspected) exposure to COVID-19; F14.10 Cocaine abuse, uncomplicated; F15.10 Other stimulant abuse, uncomplicated; F17.210 Nicotine dependence, cigarettes, uncomplicated; Z96.649 Presence of unspecified artificial hip joint; J45.909 Unspecified asthma, uncomplicated; F10.10 Alcohol abuse, uncomplicated; W45.8XXA Other foreign body or object entering through skin, initial encounter; T39.1X2A Poisoning by 4-Aminophenol derivatives, intentional self-harm, initial encounter; S61.512A Laceration without foreign body of left wrist, initial encounter; Z85.47 Personal history of malignant neoplasm of testis; Z91.14 Patient's other noncompliance with medication regimen; Z91.5 Personal history of self-harm; Z88.1 Allergy status to other antibiotic agents; Z91.048 Other nonmedicinal substance allergy status; Z85.118 Personal history of other malignant neoplasm of bronchus and lung; Y92.89 Other specified places as the place of occurrence of the external cause; Z59.0 Homelessness; Y93.89 Activity, other specified; Y99.8 Other external cause status
CPT/HCPCS: 84439; 84443; 87426; 90715; 99285; G0480; G0481

== ENCOUNTER 2020-06-27 09:51 | Inpatient (IN) | payer MEDICAID, OTHER ==
[~2020-06-27] VITALS: Ht 188 cm; Wt 90.0 kg
[~2020-06-27 09:51] MED LIST changes: -ALBU0.212 NEB; +BUPR-93 PO; +CEPH500C3 PO; +CLIN300C3 PO; -MIRT-89 PO; -MIRT30 PO; +OLAN5TAB2 PO; -OXYC-601 PO; -PREG50 PO; -[UNRECOGNIZED DRUG - REMARK] PO
[2020-06-27] MEDS ORDERED: ONDANSETRON HCL 4 MG/2 ML VIAL IVP PRN (12:45)
[2020-06-27] MEDS ORDERED: LORazepam 2 MG/ML VIAL IVP PRN (12:45)
[2020-06-27] MEDS ORDERED: 0.9% SODIUM CHLORIDE 10 ML SYRINGE IVP PRN (12:45)
[2020-06-27] MEDS: DOCUSATE SODIUM 100 MG CAPSULE PO SCH (20:30)
[2020-06-27] MEDS: FAMOTIDINE 20 MG TABLET PO SCH (20:31)
[2020-06-27 21:23] VITALS: BP 144/85
[2020-06-28] VITALS (7 sets, daily range): BP systolic 124–145; BP diastolic 82–97
[2020-06-28] MEDS ORDERED: INFLUENZA VIRUS VACCINE QVS 2020-21 (6MO+)/PF 60 MCG/0.5 ML SYRINGE IM ONE (01:00)
[2020-06-28] MEDS: DOCUSATE SODIUM 100 MG CAPSULE PO SCH ×2 (07:58→19:50)
[2020-06-28] MEDS: FAMOTIDINE 20 MG TABLET PO SCH ×2 (07:58→19:46)
[2020-06-28] MEDS: OLANZapine 5 MG TABLET PO SCH ×2 (10:00→19:47)
[2020-06-28] MEDS: BuPROPion HCL XL 150 MG ER TABLET PO SCH (10:00)
[2020-06-28 15:21] LABS: COVID AG,FIA SOURCE NASAL SWAB
[2020-06-28] MEDS ORDERED: BUPR-93 PO (16:29)
[2020-06-28] MEDS ORDERED: FAMO20 PO (16:30)
[2020-06-28] MEDS ORDERED: DOCU-275 PO ×2 (16:30→16:31)
[2020-06-28] MEDS ORDERED: OLAN2.5T3 PO (16:31)
[2020-06-28] MEDS ORDERED: ONDA4VIA22 IV (16:32)
[2020-06-28] MEDS ORDERED: LORA-1000 PO (16:32)
[2020-06-28] MEDS ORDERED: OLAN5TAB2 PO (16:34)
[2020-06-28] MEDS ORDERED: LORA2I IVP (16:36)
[2020-06-29 03:54] VITALS: BP 134/81
[2020-06-29 08:06] VITALS: BP 134/88
[2020-06-29] MEDS: BuPROPion HCL XL 150 MG ER TABLET PO SCH (08:39)
[2020-06-29] MEDS: OLANZapine 5 MG TABLET PO SCH (08:39)
[2020-06-29] MEDS: DOCUSATE SODIUM 100 MG CAPSULE PO SCH (08:40)
[2020-06-29] MEDS: FAMOTIDINE 20 MG TABLET PO SCH (08:40)
== END 2020-06-29 09:30 | DRG 812 ==
LOC: EMS 10:01 → 5N 18:40 → 6N 06-28 11:45
PROVIDERS: ADMIT Internal Medicine; ATTEND Internal Medicine
DX: T50.992A Poisoning by other drugs, medicaments and biological substances, intentional self-harm, initial encounter (principal); F32.9 Major depressive disorder, single episode, unspecified; I10 Essential (primary) hypertension; M54.30 Sciatica, unspecified side; F17.210 Nicotine dependence, cigarettes, uncomplicated; F14.10 Cocaine abuse, uncomplicated; F12.10 Cannabis abuse, uncomplicated; F15.10 Other stimulant abuse, uncomplicated; Z20.822 Contact with and (suspected) exposure to COVID-19; Y92.89 Other specified places as the place of occurrence of the external cause; Z96.649 Presence of unspecified artificial hip joint; T14.91XA Suicide attempt, initial encounter; Z85.47 Personal history of malignant neoplasm of testis; Z91.14 Patient's other noncompliance with medication regimen; Z88.6 Allergy status to analgesic agent; Z79.899 Other long term (current) drug therapy; Z85.118 Personal history of other malignant neoplasm of bronchus and lung
CPT/HCPCS: 87426; 93005; 99285; 71045-TC

== ENCOUNTER 2020-06-29 09:30 | Inpatient (IN) | payer MEDICAID ==
[~2020-06-29] VITALS: Ht 182.9 cm; Wt 89.5 kg
[~2020-06-29 09:30] MED LIST changes: -ACAM333T7 PO; -CEPH500C3 PO; -CLIN300C3 PO; +DOCU-275 PO; +FAMO20 PO
[2020-06-29] MEDS ORDERED: LORazepam 2 MG TABLET PO PRN (11:00)
[2020-06-29] MEDS ORDERED: HALOPERIDOL 5 MG TABLET PO PRN (11:00)
[2020-06-29 11:09] VITALS: BP 143/102
[2020-06-29] MEDS ORDERED: IBUPROFEN 400 MG TABLET PO PRN (13:30)
[2020-06-29] MEDS ORDERED: MAG HYDROX/AL HYDROX/SIMETH ES 30 ML SUSPENSION UDCUP PO PRN (13:30)
[2020-06-29] MEDS ORDERED: ALBUTEROL SULFATE HFA 90 MCG/PUFF 8 GM INHALER IH PRN (13:30)
[2020-06-29] MEDS ORDERED: LOPERAMIDE HCL 2 MG CAPSULE PO PRN (13:30)
[2020-06-29] MEDS ORDERED: CloNIDine HCL 0.1 MG TABLET PO PRN (13:30)
[2020-06-29] MEDS ORDERED: DOCUSATE SODIUM 100 MG CAPSULE PO PRN (13:30)
[2020-06-29] MEDS ORDERED: INFLUENZA VIRUS VACCINE QVS 2020-21 (6MO+)/PF 60 MCG/0.5 ML SYRINGE IM ONE (13:30)
[2020-06-29] MEDS ORDERED: PETROLATUM,WHITE 28 GM JELLY TP PRN (13:30)
[2020-06-29] MEDS ORDERED: MAGNESIUM HYDROXIDE SUSPENSION 30 ML UDCUP PO PRN (13:30)
[2020-06-29] MEDS ORDERED: ONDANSETRON HCL 4 MG TABLET PO PRN (13:30)
[2020-06-29] MEDS ORDERED: NICOTINE 14 MG/24 HOUR PATCH TD PRN (13:30)
[2020-06-29] MEDS ORDERED: ACETAMINOPHEN 325 MG TABLET PO PRN (13:30)
[2020-06-29] MEDS ORDERED: GuaiFENesin/D-METHORPHAN [SUGAR-FREE] 200-20MG/10 ML SYRUP UDCUP PO PRN (13:30)
[2020-06-29 16:00] VITALS: BP 152/85
[2020-06-29] MEDS: DOCUSATE SODIUM 100 MG CAPSULE PO SCH (18:03)
[2020-06-29] MEDS: OLANZapine 5 MG TABLET PO SCH (18:03)
[2020-06-29] MEDS: FAMOTIDINE 20 MG TABLET PO SCH (18:03)
[2020-06-29] MEDS: ZOLPIDEM TARTRATE 10 MG TABLET PO PRN (20:28)
[2020-06-30 08:23] VITALS: BP 154/106
[2020-06-30] MEDS: FAMOTIDINE 20 MG TABLET PO SCH ×2 (09:33→17:14)
[2020-06-30] MEDS: OLANZapine 5 MG TABLET PO SCH ×2 (09:33→17:14)
[2020-06-30] MEDS: BuPROPion HCL XL 150 MG ER TABLET PO SCH (09:34)
[2020-06-30] MEDS: DOCUSATE SODIUM 100 MG CAPSULE PO SCH ×2 (09:35→17:14)
[2020-06-30 15:09] LABS: APPEARANCE,URINE CLEAR (CLEAR); BILIRUBIN,URINE NEGATIVE (NEGATIVE); GLUCOSE, URINE (UA) NEGATIVE (NEGATIVE); KETONES,URINE NEGATIVE (NEGATIVE); LEUKOCYTE ESTERASE ,URINE NEGATIVE (NEGATIVE); NITRATE,URINE NEGATIVE (NEGATIVE); OCCULT BLOOD,URINE NEGATIVE (NEGATIVE); PH,URINE 6.5 (5.0-8.0); PROTEIN,URINE NEGATIVE (NEGATIVE); UROBILINOGEN,URINE 0.2 mg/dL (<=1.0)
[2020-06-30 15:15] LABS: AMPHET/METH SCREEN,URINE NEGATIVE (NEGATIVE); BARBITURATE SCREEN, URINE NEGATIVE (NEGATIVE); BENZODIAZEPINES SCREEN,URINE NEGATIVE (NEGATIVE); CANNABINOID SCREEN,URINE NEGATIVE (NEGATIVE); COCAINE SCREEN,URINE NEGATIVE (NEGATIVE); METHADONE SCREEN, URINE NEGATIVE (NEGATIVE); OPIATE SCREEN,URINE NEGATIVE (NEGATIVE)
[2020-06-30 15:16] LABS: PHENCYCLIDINE SCREEN,URINE NEGATIVE (NEGATIVE)
[2020-06-30 16:00] VITALS: BP 131/86
[2020-06-30] MEDS: ZOLPIDEM TARTRATE 10 MG TABLET PO PRN (21:32)
[2020-07-01 00:35] VITALS: BP 135/93
[2020-07-01 08:49] VITALS: BP 149/90
[2020-07-01] MEDS: DOCUSATE SODIUM 100 MG CAPSULE PO SCH ×2 (09:08→17:20)
[2020-07-01] MEDS: BuPROPion HCL XL 150 MG ER TABLET PO SCH (09:08)
[2020-07-01] MEDS: FAMOTIDINE 20 MG TABLET PO SCH ×2 (09:08→17:20)
[2020-07-01] MEDS: OLANZapine 5 MG TABLET PO SCH ×2 (09:08→17:20)
[2020-07-01 16:00] VITALS: BP 146/88
[2020-07-01] MEDS ORDERED: INFLUENZA VIRUS VACCINE QVS 2020-21 (6MO+)/PF 60 MCG/0.5 ML SYRINGE IM ONE (19:45)
[2020-07-01] MEDS: ZOLPIDEM TARTRATE 10 MG TABLET PO PRN (20:33)
[2020-07-02 05:10] VITALS: BP 138/99
[2020-07-02] MEDS: BuPROPion HCL XL 150 MG ER TABLET PO SCH (10:05)
[2020-07-02] MEDS: OLANZapine 5 MG TABLET PO SCH (10:05)
[2020-07-02] MEDS: FAMOTIDINE 20 MG TABLET PO SCH (10:05)
[2020-07-02] MEDS: DOCUSATE SODIUM 100 MG CAPSULE PO SCH (10:06)
[2020-07-02 11:24] VITALS: BP 138/96
== END 2020-07-02 14:20 | disposition home or self-care (01) | DRG 750 ==
LOC: 3EI 09:30
PROVIDERS: ADMIT Psychiatry & Neurology Psychiatry; ATTEND Psychiatry & Neurology Psychiatry
DX: F20.9 Schizophrenia, unspecified (principal); R45.851 Suicidal ideations; I10 Essential (primary) hypertension; K21.9 Gastro-esophageal reflux disease without esophagitis; K59.00 Constipation, unspecified
CPT/HCPCS: 80307; 84443; 90686

== ENCOUNTER 2022-02-28 15:30 | Emergency (ER) | payer MEDICAID ==
[~2022-02-28] VITALS: Ht 180.3 cm; Wt 97.7 kg
[~2022-02-28 15:30] MED LIST changes: +BUPR-50 PO; -BUPR-93 PO; -DOCU-275 PO; +DOCU-385 PO; -OLAN5TAB2 PO; +OLAN5TAB52 PO
[2022-02-28] MEDS ORDERED: AMLO2.5T96 PO (15:46)
[2022-02-28] MEDS ORDERED: CLON0.1T2 PO (15:46)
[2022-02-28] MEDS ORDERED: ARIP2TAB27 PO (15:46)
[2022-02-28] MEDS ORDERED: ALBU8HFA IH (15:46)
[2022-02-28 16:17] LABS: COVID AG,FIA SOURCE NASAL SWAB
[2022-02-28 16:41] LABS: INFLUENZA TYPE A NEGATIVE FOR TYPE A (NEGATIVE); INFLUENZA TYPE B NEGATIVE FOR TYPE B (NEGATIVE)
[2022-02-28] MEDS ORDERED: HYDROCODONE/ACETAMINOPHEN 5-325 MG TABLET PO ONE (17:15)
[2022-02-28] MEDS ORDERED: GuaiFENesin/D-METHORPHAN [SUGAR-FREE] 200-20MG/10 ML SYRUP UDCUP PO ONE (17:15)
[2022-02-28] MEDS ORDERED: KETOROLAC TROMETHAMINE 60 MG/2 ML VIAL IM ONE (17:15)
[2022-02-28 17:25] LABS: EOSINOPHILS % (AUTO) 0.5 % (1.0-6.0); HEMOGLOBIN 13.7 g/dL (13.5-17.5); LYMPHOCYTES # (AUTO) 1.3 K/uL (1.0-4.8); MEAN CORPUSCULAR HEMOGLOBIN 28.1 pg (26.0-34.0); MEAN CORPUSCULAR HGB CONC 33.5 G/dL (31.0-37.0); MEAN CORPUSCULAR VOLUME 84 fL (80-100); MONOCYTES # (AUTO) 0.6 K/uL (0.1-1.0); NEUTROPHILS # (AUTO) 3.1 K/uL (1.8-7.7); NEUTROPHILS % (AUTO) 61.5 % (40.0-70.0); PLATELET COUNT (AUTO) 203 K/uL (150-450); RED BLOOD CELL COUNT(AUTO) 4.89 MIL/uL (4.50-5.90); RED CELL DISTRIBUTION WIDTH 13.9 % (11.5-14.5)
[2022-02-28 17:39] LABS: CALCIUM, TOTAL 9.1 mg/dL (8.8-10.5); CREATININE 1.43 mg/dL (0.60-1.30); POTASSIUM 3.4 mmol/L (3.5-5.1)
[2022-02-28] MEDS ORDERED: ARIP10TA38 PO (17:47)
[2022-02-28] MEDS ORDERED: AMLO5TAB66 PO (17:47)
[2022-02-28] MEDS ORDERED: LISI20TA24 PO (17:47)
[2022-02-28] MEDS ORDERED: ATOR20TA65 PO (17:47)
[2022-02-28 18:08] VITALS: BP 127/85
[2022-02-28] MEDS ORDERED: IBUP-1554 PO (18:37)
[2022-02-28] MEDS ORDERED: NIRM1TAB PO (18:37)
[2022-02-28] MEDS ORDERED: HYDR-4723 PO (18:37)
[2022-02-28] MEDS ORDERED: GUAIFDM PO (18:37)
== END 2022-02-28 19:16 | disposition home or self-care (01) ==
LOC: EMS 15:32
DX: U07.1 COVID-19 (principal); J20.9 Acute bronchitis, unspecified; M79.671 Pain in right foot; F15.10 Other stimulant abuse, uncomplicated; I10 Essential (primary) hypertension; F32.9 Major depressive disorder, single episode, unspecified; F12.90 Cannabis use, unspecified, uncomplicated; Z88.2 Allergy status to sulfonamides; Z79.899 Other long term (current) drug therapy
CPT/HCPCS: 99283; 87426; 80048; 85025; 87804; 36415; 96372; J1885

== ENCOUNTER 2022-04-28 18:03 | Emergency (ER) | payer OTHER ==
[~2022-04-28 18:03] MED LIST changes: +ALBU8HFA IH; +AMLO5TAB66 PO; +ARIP10TA38 PO; +ATOR20TA65 PO; -BUPR-50 PO; +CLON0.1T2 PO; -DOCU-385 PO; -FAMO20 PO; +IBUP-1554 PO; +LISI20TA24 PO; -OLAN5TAB52 PO
== END 2022-04-28 19:42 | disposition left against medical advice (07) ==
LOC: EMS 18:27
DX: Z53.21 Procedure and treatment not carried out due to patient leaving prior to being seen by health care provider (principal)

== ENCOUNTER 2022-08-03 12:31 | Emergency (ER) | payer OTHER ==
[~2022-08-03] VITALS: Ht 182.9 cm; Wt 102.3 kg
[~2022-08-03 12:31] MED LIST changes: +ALBU18HF12 IH; -ALBU8HFA IH
[2022-08-03 12:40] VITALS: BP 145/85
[2022-08-03] MEDS ORDERED: ACETAMINOPHEN 500 MG TABLET PO ONE (12:45)
[2022-08-03] MEDS ORDERED: GuaiFENesin/D-METHORPHAN [SUGAR-FREE] 200-20MG/10 ML SYRUP UDCUP PO ONE (12:45)
[2022-08-03 13:14] LABS: COVID AG,FIA SOURCE NASOPHARYNGEAL
[2022-08-03 13:41] LABS: INFLUENZA TYPE A NEGATIVE FOR TYPE A (NEGATIVE); INFLUENZA TYPE B NEGATIVE FOR TYPE B (NEGATIVE)
[2022-08-03] MEDS ORDERED: GUAIFDM PO (13:50)
[2022-08-03] MEDS ORDERED: IBUP-1554 PO (13:50)
[2022-08-03] MEDS ORDERED: HYDR-4072 PO (13:50)
== END 2022-08-03 14:19 | disposition home or self-care (01) ==
LOC: EMS 12:47
DX: J20.9 Acute bronchitis, unspecified (principal); J06.9 Acute upper respiratory infection, unspecified; F32.A Depression, unspecified; I10 Essential (primary) hypertension; F20.9 Schizophrenia, unspecified; F12.90 Cannabis use, unspecified, uncomplicated; F15.90 Other stimulant use, unspecified, uncomplicated; Z96.649 Presence of unspecified artificial hip joint; Z98.890 Other specified postprocedural states; Z88.2 Allergy status to sulfonamides; Z88.8 Allergy status to other drugs, medicaments and biological substances; Z20.822 Contact with and (suspected) exposure to COVID-19
CPT/HCPCS: 87804; 99283

== ENCOUNTER 2022-12-01 16:51 | Inpatient (IN) | payer MEDICAID, OTHER ==
[~2022-12-01] VITALS: Ht 182.9 cm; Wt 89.8 kg
[~2022-12-01 16:51] MED LIST changes: -ALBU18HF12 IH; -ATOR20TA65 PO; +GUAIFDM PO; +HYDR-4072 PO; -LISI20TA24 PO
[2022-12-01 17:26] LABS: BASOPHILS % (AUTO) 0.8 % (0.0-2.0); EOSINOPHILS % (AUTO) 3.5 % (1.0-6.0); HEMATOCRIT 48.2 % (41-53); HEMOGLOBIN 15.9 g/dL (13.5-17.5); LYMPHOCYTES # (AUTO) 1.7 K/uL (1.0-4.8); MEAN CORPUSCULAR HEMOGLOBIN 27.8 pg (26.0-34.0); MEAN CORPUSCULAR HGB CONC 32.9 G/dL (31.0-37.0); MEAN CORPUSCULAR VOLUME 84 fL (80-100); MONOCYTES # (AUTO) 0.5 K/uL (0.1-1.0); MONOCYTES % (AUTO) 5.8 % (2.0-9.0); NEUTROPHILS # (AUTO) 5.7 K/uL (1.8-7.7); NEUTROPHILS % (AUTO) 68.9 % (40.0-70.0); PLATELET COUNT (AUTO) 301 K/uL (150-450); RED BLOOD CELL COUNT(AUTO) 5.71 MIL/uL (4.50-5.90); RED CELL DISTRIBUTION WIDTH 13.6 % (11.5-14.5); WHITE BLOOD COUNT (AUTO) 8.2 K/uL (4.5-11.0)
[2022-12-01 17:32] LABS: ANION GAP 13 mmol/L (8-16); CALCIUM, TOTAL 9.4 mg/dL (8.8-10.5); CARBON DIOXIDE 25 mmol/L (22-29); CHLORIDE 102 mmol/L (98-107); CREATININE 1.16 mg/dL (0.60-1.30); GLOMERULAR FILTR. RATE CALC > 60 mL/min (>60); GLUCOSE,RANDOM 106 mg/dL (70-110); POTASSIUM 4.1 mmol/L (3.5-5.1); SODIUM SERUM 140 mmol/L (136-145); UREA NITROGEN, BLOOD 18 mg/dL (7-18)
[2022-12-01 17:38] LABS: ALANINE AMINOTRANSFERASE 23 U/L (12-78); ALBUMIN 3.8 g/dL (3.4-5.0); ALKALINE PHOSPHATASE 78 U/L (46-116); ASPARTATE AMINOTRANSFERASE 13 U/L (15-37); BILIRUBIN,TOTAL 0.3 mg/dL (0.1-1.0); TOTAL PROTEIN, SERUM 7.7 g/dL (6.4-8.2)
[2022-12-01 17:39] LABS: ALCOHOL, BLOOD (SERUM) < 3 mg/dL (0-10)
[2022-12-01 18:10] LABS: ALCOHOL, URINE DRUG SCREEN NEGATIVE (NEGATIVE); AMPHET/METH SCREEN,URINE POSITIVE (NEGATIVE); BARBITURATE SCREEN, URINE NEGATIVE (NEGATIVE); BENZODIAZEPINES SCREEN,URINE NEGATIVE (NEGATIVE); CANNABINOID SCREEN,URINE POSITIVE (NEGATIVE); COCAINE SCREEN,URINE NEGATIVE (NEGATIVE); METHADONE SCREEN, URINE NEGATIVE (NEGATIVE); OPIATE SCREEN,URINE NEGATIVE (NEGATIVE); PHENCYCLIDINE SCREEN,URINE NEGATIVE (NEGATIVE)
[2022-12-01] MEDS ORDERED: ZOLPIDEM TARTRATE 10 MG TABLET PO PRN (19:15)
[2022-12-02 02:50] LABS: COVID AG,FIA SOURCE NASOPHARYNGEAL
[2022-12-02 03:17] LABS: SARS-COV2 (COVID) ANTIGEN,FIA Negative (Negative)
[2022-12-02] MEDS ORDERED: DOCUSATE SODIUM 100 MG CAPSULE PO PRN (07:15)
[2022-12-02] MEDS ORDERED: ONDANSETRON HCL 4 MG TABLET PO PRN (07:15)
[2022-12-02] MEDS ORDERED: IBUPROFEN 600 MG TABLET PO PRN (07:15)
[2022-12-02] MEDS ORDERED: ALBUTEROL SULFATE HFA 90 MCG/PUFF 8 GM INHALER IH PRN (07:15)
[2022-12-02] MEDS ORDERED: LOPERAMIDE HCL 2 MG CAPSULE PO PRN (07:15)
[2022-12-02] MEDS ORDERED: CloNIDine HCL 0.1 MG TABLET PO PRN (07:15)
[2022-12-02] MEDS ORDERED: MAGNESIUM HYDROXIDE SUSPENSION 30 ML UDCUP PO PRN (07:15)
[2022-12-02] MEDS ORDERED: ACETAMINOPHEN 325 MG TABLET PO PRN (07:15)
[2022-12-02] MEDS ORDERED: BENZOCAINE/MENTHOL LOZENGE PO PRN (07:15)
[2022-12-02] MEDS ORDERED: OMEPRAZOLE 20 MG CAPSULE PO PRN (07:15)
[2022-12-02] MEDS ORDERED: BACITRACIN 28 GM OINTMENT TP PRN (07:15)
[2022-12-02] MEDS ORDERED: PETROLATUM,WHITE 28 GM JELLY TP PRN (07:15)
[2022-12-02] MEDS ORDERED: MAG HYDROX/AL HYDROX/SIMETH ES 30 ML SUSPENSION UDCUP PO PRN (07:15)
[2022-12-02] MEDS: AmLODIPine BESYLATE 5 MG TABLET PO SCH (08:16)
[2022-12-02 16:09] VITALS: BP 149/102; PULSE 72; RESP 18; TEMP 97.3
[2022-12-02 22:03] VITALS: BP 144/91; PULSE 75; RESP 18; TEMP 98
[2022-12-03 08:17] VITALS: BP 111/69; PULSE 67; RESP 17; TEMP 97.2
[2022-12-03] MEDS: AmLODIPine BESYLATE 5 MG TABLET PO SCH (09:16)
[2022-12-03] MEDS ORDERED: ARIPiprazole 10 MG TABLET PO SCH (14:45)
[2022-12-03] MEDS: ARIPiprazole 10 MG TABLET PO SCH (15:16)
[2022-12-03] MEDS: LORazepam 2 MG TABLET PO PRN (15:38)
[2022-12-03] MEDS: HALOPERIDOL 5 MG TABLET PO PRN (15:38)
[2022-12-03 21:27] VITALS: BP 140/80; PULSE 76; RESP 18; TEMP 97.1
[2022-12-04] MEDS: AmLODIPine BESYLATE 5 MG TABLET PO SCH (09:47)
[2022-12-04] MEDS: ARIPiprazole 10 MG TABLET PO SCH (09:47)
[2022-12-04] MEDS: LORazepam 2 MG TABLET PO PRN (09:48)
[2022-12-04] MEDS: HALOPERIDOL 5 MG TABLET PO PRN (09:48)
[2022-12-04 16:34] VITALS: BP 145/92; PULSE 82; RESP 18; TEMP 97.1
[2022-12-04 22:07] VITALS: RESP 17
[2022-12-05] MEDS: AmLODIPine BESYLATE 5 MG TABLET PO SCH (08:42)
[2022-12-05] MEDS: ARIPiprazole 10 MG TABLET PO SCH (08:42)
[2022-12-05 09:29] VITALS: BP 131/94; PULSE 90; RESP 18; TEMP 98.5
[2022-12-05 10:58] VITALS: BP 144/115; PULSE 120; RESP 18
== END 2022-12-05 18:41 | disposition home or self-care (01) | DRG 753 ==
LOC: EMS 16:52 → 3EI 19:55 → AHU 12-02 07:51 → 3EI 12-02 08:14 → AHU 12-02 10:23 → 3EI 12-02 10:24
PROVIDERS: ADMIT Psychiatry & Neurology Psychiatry; ATTEND Psychiatry & Neurology Psychiatry
DX: F31.9 Bipolar disorder, unspecified (principal); R45.851 Suicidal ideations; F20.9 Schizophrenia, unspecified; G47.00 Insomnia, unspecified; F41.9 Anxiety disorder, unspecified; Z20.822 Contact with and (suspected) exposure to COVID-19; K59.00 Constipation, unspecified; F15.10 Other stimulant abuse, uncomplicated; F12.10 Cannabis abuse, uncomplicated; Z96.649 Presence of unspecified artificial hip joint; I10 Essential (primary) hypertension; K21.9 Gastro-esophageal reflux disease without esophagitis; Z72.0 Tobacco use; Z85.118 Personal history of other malignant neoplasm of bronchus and lung; Z85.47 Personal history of malignant neoplasm of testis; Z91.199 Patient's noncompliance with other medical treatment and regimen due to unspecified reason; Z88.2 Allergy status to sulfonamides; Z79.899 Other long term (current) drug therapy
CPT/HCPCS: 80053; 80307; 85025; 99285; G0480